=== PATIENT | female | born 1940 | race Caucasian/White ===

== ENCOUNTER 2018-11-17 07:08 | Observation (INO) ==
[2018-11-17] MEDS ORDERED: methylPREDNISolone SOD SUC 125 MG/2 ML VIAL IV STA (07:20)
[2018-11-17] MEDS ORDERED: ALBUTEROL 2.5 MG/3 ML NEB RESP TX STA (07:20)
[2018-11-17] MEDS ORDERED: SODIUM CHLORIDE 0.9% 500 ML IV STA (07:20)
[2018-11-17] MEDS ORDERED: ONDANSETRON 4 MG/2 ML VIAL IV STA (07:20)
[2018-11-17] MEDS ORDERED: KETOROLAC 30 MG/1 ML VIAL IV STA (07:21)
[2018-11-17 07:53] LABS: Basophils % 0.2 % (0.0-0.8); Eosinophils # 0.1 10*3/uL (0.0-0.87); Eosinophils % 0.6 % (0.00-10.9); Hematocrit 46.8 VOL% (35.7-47.0); Hemoglobin 15.7 GM/DL (12.0-16.0); Immature Granulocytes Absolute 0.35 #; Lymphocytes # 3.2 10*3/uL (1.4-4.0); Lymphocytes % 18.1 % (21.3-54.2); Mean Corpuscular HGB Conc 33.5 GM/DL (32-36); Mean Corpuscular Hemoglobin 33 PG (27-34); Mean Corpuscular Volume 97.1 FL (87-102); Mean Platelet Volume 9.5 FL (9.6-12.0); Monocytes # 1.1 10*3/uL (0.11-0.8); Monocytes % 6.3 % (1.7-12.7); Neutrophils # 12.8 10*3/uL (1.4-7.4); Neutrophils % 72.8 % (38.7-73.9); Platelet Count 175 T/CUMM (130-400); Red Blood Count 4.82 MC/CUMM (3.8-5.5); Red Cell Distribution Width 13.9 % (9.3-17.3); White Blood Count 17.6 T/CUMM (4-12)
[2018-11-17 08:02] LABS: PT Patient Result 10.9 SECS; Partial Thromboplastin Time 23.8 SECS (0-40)
[2018-11-17 08:12] LABS: Bilirubin,Total 0.7 MG/DL (0.2-1.0); Calcium 9.3 MG/DL (8.5-10.1); Osmolality,Calculated 275.8 MOS/KG (273-304); Potassium 3.6 MMOL/L (3.5-5.1)
[2018-11-17] MEDS ORDERED: ONDANSETRON 4 MG/2 ML VIAL IV PRN (08:47)
[2018-11-17] MEDS ORDERED: PROMETHAZINE 25 MG/1 ML VIAL IM PRN (08:47)
[2018-11-17] MEDS ORDERED: ACETAMINOPHEN 325 MG TABLET PO PRN (08:47)
[2018-11-17] MEDS ORDERED: LIDOCAINE 5% PATCH TRANSDERM PRN (08:52)
[2018-11-17] MEDS ORDERED: PANTOPRAZOLE 40 MG TABLET PO SCH (09:00)
[2018-11-17] MEDS ORDERED: Fluticasone/Umeclidin/Vilanter [Trelegy Ellipta 100-62.5-25] INH SCH (09:00)
[2018-11-17] MEDS ORDERED: predniSONE 20 MG TABLET PO SCH (09:00)
[2018-11-17] MEDS: BUDESONIDE 0.5 MG/2 ML NEB RESP TX SCH ×2 (09:03→19:46)
[2018-11-17] MEDS ORDERED: ZALEPLON 5 MG CAPSULE PO PRN (09:47)
[2018-11-17] MEDS ORDERED: MAGNESIUM SULF RIDER 2 GM in PREMIX 1 EACH IV ONE (09:51)
[2018-11-17] MEDS ORDERED: POTASSIUM CHLORIDE 20 MEQ TABLET PO ONE (09:51)
[2018-11-17] MEDS ORDERED: KETOROLAC 15 MG/1 ML VIAL IV PRN ×2 (10:01→19:30)
[2018-11-17] MEDS: GABAPENTIN 300 MG CAPSULE PO SCH ×3 (10:28→21:36)
[2018-11-17] MEDS: PANTOPRAZOLE 40 MG TABLET PO SCH (10:28)
[2018-11-17] MEDS: ENOXAPARIN 40 MG/0.4 ML SYRINGE SUBCUT SCH (10:28)
[2018-11-17] MEDS: LEVOFLOXACIN INJ 500 MG in PREMIX 1 EACH IV SCH (11:02)
[2018-11-17] MEDS ORDERED: ASPIRIN CHEW 81 MG TABLET PO ONE (11:26)
[2018-11-17] MEDS ORDERED: predniSONE 20 MG TABLET ONE (11:26)
[2018-11-17] MEDS: THEOPHYLLINE ER 300 MG TABLET PO SCH ×2 (11:33→21:36)
[2018-11-17] MEDS: amLODIPine 2.5 MG TABLET PO SCH (11:33)
[2018-11-17] MEDS: ASPIRIN EC 81 MG TABLET PO SCH (12:00)
[2018-11-17] MEDS: ALBUTEROL/IPRATROPIUM 3 ML NEB RESP TX SCH ×2 (12:03→19:46)
[2018-11-17] MEDS: methylPREDNISolone SOD SUC 40 MG/1 ML VIAL IV SCH ×2 (14:09→18:23)
[2018-11-17] MEDS: traMADol 50 MG TABLET PO PRN (18:23)
[2018-11-17] MEDS ORDERED: KETOROLAC 15 MG/1 ML VIAL IV ONE ×2 (19:33→20:00)
[2018-11-17] MEDS ORDERED: KETOROLAC 15 MG/1 ML VIAL IV SCH (20:00)
[2018-11-17] MEDS: MONTELUKAST 10 MG TABLET PO SCH (21:36)
[2018-11-18] MEDS: ALBUTEROL/IPRATROPIUM 3 ML NEB RESP TX SCH ×4 (00:12→19:52)
[2018-11-18 01:20] LABS: Apearance,Urine CLEAR (Clear); Bilirubin,Urine Negative (Negative); Blood, Urine Small mg/dL (Negative); Glucose,Urine (UA) 50 mg/dL (Negative); Ketones,Urine Negative (Negative); Mucus,Urine Occasional /LPF (Occasional); Nitrite,Urine Negative (Negative); Protein,Urine Negative; RBC,Urine 2 /HPF (0-4); Squamous Epithelial Cell,Urine Occasional /HPF (0-10); Urine Color Yellow (Yellow); Urine Specific Gravity 1.019 (1.001-1.035); Urine Urobilinogen < 2.0 EU/DL (0.2-1.0); WBC,Urine <1 /HPF (0-6)
[2018-11-18] MEDS: methylPREDNISolone SOD SUC 40 MG/1 ML VIAL IV SCH ×3 (02:01→17:55)
[2018-11-18 06:30] LABS: Basophils % 0.1 % (0.0-0.8); Hematocrit 44.8 VOL% (35.7-47.0); Hemoglobin 14.7 GM/DL (12.0-16.0); Immature Granulocytes % 1.3 %; Immature Granulocytes Absolute 0.19 #; Lymphocytes # 2.7 10*3/uL (1.4-4.0); Lymphocytes % 18.7 % (21.3-54.2); Mean Corpuscular HGB Conc 32.8 GM/DL (32-36); Mean Corpuscular Hemoglobin 33 PG (27-34); Mean Corpuscular Volume 98.9 FL (87-102); Mean Platelet Volume 10.2 FL (9.6-12.0); Monocytes # 0.2 10*3/uL (0.11-0.8); Monocytes % 1.7 % (1.7-12.7); Neutrophils # 11.2 10*3/uL (1.4-7.4); Neutrophils % 78.2 % (38.7-73.9); Platelet Count 166 T/CUMM (130-400); Red Blood Count 4.53 MC/CUMM (3.8-5.5); Red Cell Distribution Width 13.6 % (9.3-17.3); White Blood Count 14.4 T/CUMM (4-12)
[2018-11-18 06:57] LABS: Calcium 8.9 MG/DL (8.5-10.1); Osmolality,Calculated 277.8 MOS/KG (273-304); Potassium 3.8 MMOL/L (3.5-5.1); Risk Ratio 1.66; Thyroid Stimulating Hormone 0.2 uIU/ml (0.358-3.74); VLDL CHOLESTEROL 15.6 MG/DL
[2018-11-18] MEDS ORDERED: LEVOTHYROXINE 88 MCG TABLET PO SCH ×3 (07:00→08:32)
[2018-11-18] MEDS: BUDESONIDE 0.5 MG/2 ML NEB RESP TX SCH ×2 (07:19→19:52)
[2018-11-18] MEDS: KETOROLAC 15 MG/1 ML VIAL IV PRN ×2 (09:34→18:01)
[2018-11-18] MEDS: PANTOPRAZOLE 40 MG TABLET PO SCH (09:38)
[2018-11-18] MEDS: GABAPENTIN 300 MG CAPSULE PO SCH ×3 (09:38→21:42)
[2018-11-18] MEDS: ASPIRIN EC 81 MG TABLET PO SCH (09:38)
[2018-11-18] MEDS: amLODIPine 2.5 MG TABLET PO SCH (09:38)
[2018-11-18] MEDS: LEVOFLOXACIN INJ 500 MG in PREMIX 1 EACH IV SCH (09:39)
[2018-11-18] MEDS: ENOXAPARIN 40 MG/0.4 ML SYRINGE SUBCUT SCH (09:39)
[2018-11-18] MEDS: THEOPHYLLINE ER 300 MG TABLET PO SCH ×2 (12:53→21:37)
[2018-11-18] MEDS ORDERED: IBUPROFEN 800 MG TABLET PO ONE (13:33)
[2018-11-18] MEDS ORDERED: METOPROLOL TARTRATE 25 MG TABLET PO ONE (14:00)
[2018-11-18] MEDS ORDERED: METAXALONE 800 MG TABLET PO PRN (14:02)
[2018-11-18] MEDS ORDERED: METAXALONE 800 MG TABLET PO ONE (14:30)
[2018-11-18] MEDS: traMADol 50 MG TABLET PO PRN (14:42)
[2018-11-18] MEDS ORDERED: METHOCARBAMOL 750 MG TABLET PO SCH (17:00)
[2018-11-18] MEDS: MONTELUKAST 10 MG TABLET PO SCH (21:37)
[2018-11-19] MEDS: ALBUTEROL/IPRATROPIUM 3 ML NEB RESP TX SCH ×2 (00:54→07:32)
[2018-11-19] MEDS: methylPREDNISolone SOD SUC 40 MG/1 ML VIAL IV SCH ×2 (01:34→09:47)
[2018-11-19 05:37] LABS: Basophils % 0.1 % (0.0-0.8); Hematocrit 41.1 VOL% (35.7-47.0); Hemoglobin 13.6 GM/DL (12.0-16.0); Immature Granulocytes % 1.3 %; Immature Granulocytes Absolute 0.21 #; Lymphocytes # 2.3 10*3/uL (1.4-4.0); Lymphocytes % 13.9 % (21.3-54.2); Mean Corpuscular HGB Conc 33.1 GM/DL (32-36); Mean Corpuscular Hemoglobin 32 PG (27-34); Mean Corpuscular Volume 97.6 FL (87-102); Mean Platelet Volume 9.9 FL (9.6-12.0); Monocytes # 0.3 10*3/uL (0.11-0.8); Monocytes % 1.8 % (1.7-12.7); Neutrophils # 13.6 10*3/uL (1.4-7.4); Neutrophils % 82.9 % (38.7-73.9); Platelet Count 154 T/CUMM (130-400); Red Blood Count 4.21 MC/CUMM (3.8-5.5); Red Cell Distribution Width 13.5 % (9.3-17.3); White Blood Count 16.4 T/CUMM (4-12)
[2018-11-19] MEDS: BUDESONIDE 0.5 MG/2 ML NEB RESP TX SCH (07:32)
[2018-11-19] MEDS: LEVOFLOXACIN INJ 500 MG in PREMIX 1 EACH IV SCH (09:47)
[2018-11-19] MEDS: amLODIPine 2.5 MG TABLET PO SCH (09:48)
[2018-11-19] MEDS: ASPIRIN EC 81 MG TABLET PO SCH (10:01)
[2018-11-19] MEDS: GABAPENTIN 300 MG CAPSULE PO SCH (10:02)
[2018-11-19] MEDS: THEOPHYLLINE ER 300 MG TABLET PO SCH (10:02)
[2018-11-19] MEDS: ENOXAPARIN 40 MG/0.4 ML SYRINGE SUBCUT SCH (10:02)
[2018-11-19] MEDS: PANTOPRAZOLE 40 MG TABLET PO SCH (10:02)
[2018-11-19] MEDS ORDERED: ROPIVACAINE 0.5% 30 ML VIAL ONE (11:04)
[2018-11-19] MEDS ORDERED: methylPREDNISolone ACETATE 80 MG/1 ML VIAL ONE (11:05)
[2018-11-19] MEDS ORDERED: PROPOFOL 200 MG/20 ML VIAL IV ONE (12:19)
[2018-11-19] MEDS ORDERED: fentaNYL 100 MCG/2 ML VIAL ONE (12:19)
[2018-11-19 12:51] VITALS: BP 154/79
== END 2018-11-19 13:34 | disposition home or self-care (01) ==
LOC: EDUNIT# → N.EDINP 07:08 → N.ED 07:08 → N.5E 12:28
PROVIDERS: ADMIT Family Medicine; ATTEND Family Medicine